=== PATIENT | male | born 1955 | race Caucasian/White ===

== ENCOUNTER → 2020-12-05 | Outpatient (CLI) | payer BC ==
[~2020-12-05] MED LIST: ASPIRIN EC81 MG PO; ATORVASTATIN CA20 MG PO; BRILINTA 90 MG90 MG PO; CARAFATE1 GM PO; DIOVAN40 MG PO; LOPRESSOR 25 MG25 MG PO; PROTONIX 20 MG20 MG PO; SYNTHROID100 MCG PO
== END ==
LOC: HEART 5 14:09
DX: I25.10 Atherosclerotic heart disease of native coronary artery without angina pectoris (principal); I25.2 Old myocardial infarction; R94.39 Abnormal result of other cardiovascular function study; I11.9 Hypertensive heart disease without heart failure
CPT/HCPCS: 93306

== ENCOUNTER → 2021-02-18 | Outpatient (CLI) | payer BC | LOC: HEART 5 08:32 | DX: I20.9 Angina pectoris, unspecified (principal) | CPT/HCPCS: 78452; A9502 ==